=== PATIENT | male | born 1970 | race African-American/Black ===

== ENCOUNTER 2020-03-11 10:31 | Emergency (ER) | payer MEDICAID ==
[~2020-03-11] VITALS: Ht 182.9 cm; Wt 116.0 kg
[2020-03-11 10:34] VITALS: BP 116/88
== END 2020-03-11 11:34 | disposition home or self-care (01) ==
LOC: ER 10:31
DX: F41.9 Anxiety disorder, unspecified (principal); M54.30 Sciatica, unspecified side; I10 Essential (primary) hypertension
CPT/HCPCS: 99283

== ENCOUNTER 2020-04-25 14:11 | Emergency (ER) | payer MEDICAID ==
[~2020-04-25] VITALS: Ht 182.9 cm; Wt 115.6 kg
[2020-04-25 14:18] VITALS: BP 139/63
== END 2020-04-25 14:46 | disposition home or self-care (01) ==
LOC: ER 14:31
DX: T18.9XXA Foreign body of alimentary tract, part unspecified, initial encounter (principal); I10 Essential (primary) hypertension; F41.9 Anxiety disorder, unspecified; M54.30 Sciatica, unspecified side; Z76.0 Encounter for issue of repeat prescription; X58.XXXA Exposure to other specified factors, initial encounter; Y93.89 Activity, other specified; Y92.511 Restaurant or cafe as the place of occurrence of the external cause
CPT/HCPCS: 99283

== ENCOUNTER 2022-05-18 00:36 | Emergency (ER) | payer MEDICAID ==
[~2022-05-18] VITALS: Ht 182.9 cm; Wt 90.7 kg
[2022-05-18] MEDS ORDERED: KETOROLAC 60MG/2ML VIAL IM STA (02:58)
[2022-05-18] MEDS ORDERED: LIDOCAINE HCL/PF 1% 10 MG/ML 5ML VIAL INFIL ONE (03:00)
[2022-05-18] MEDS ORDERED: BACITRACIN ZINC OINT UDPKT TOP ONE (03:00)
[2022-05-18 03:27] VITALS: BP 130/76
[2022-05-18] MEDS ORDERED: T3 PO (04:33)
[2022-05-18] MEDS ORDERED: CEPH500T PO (04:33)
[2022-05-18] MEDS ORDERED: SULF1TAB48 PO (04:33)
[2022-05-18] MEDS ORDERED: IBUP-2029 PO (04:33)
== END 2022-05-18 04:45 | disposition home or self-care (01) ==
LOC: ER 00:36
DX: L02.416 Cutaneous abscess of left lower limb (principal); I10 Essential (primary) hypertension; F41.9 Anxiety disorder, unspecified; M54.30 Sciatica, unspecified side
CPT/HCPCS: 96372; 99283; J1885; J3490; Z7610

== ENCOUNTER 2022-05-20 03:41 | Emergency (ER) | payer MEDICAID ==
[~2022-05-20] VITALS: Ht 182.9 cm; Wt 91.0 kg
[~2022-05-20 03:41] MED LIST: CEPH500T PO; IBUP-2029 PO; SULF1TAB48 PO; T3 PO
[2022-05-20 03:49] VITALS: BP 150/88
== END 2022-05-20 05:50 | disposition left against medical advice (07) ==
LOC: ER 03:41
DX: Z48.00 Encounter for change or removal of nonsurgical wound dressing (principal); E78.00 Pure hypercholesterolemia, unspecified; I10 Essential (primary) hypertension; Z98.890 Other specified postprocedural states
CPT/HCPCS: 99281; Z7610